=== PATIENT | female | born 1995 | race Caucasian/White ===

== ENCOUNTER 2020-05-09 07:51 | Outpatient (CLI) | payer SELFPAY ==
--- NOTE | 2020-05-09 07:59 | US_ITS ---
WS: [id number] TRANSABDOMINAL AND TRANSVAGINAL FIRST TRIMESTER ULTRASOUND HISTORY: SUPERVISION OF NORMAL : 1 PARA: 0 COMPARISON: None available. FINDINGS: Cervical length is 2.48 cm and was closed. Single live intrauterine . [place] rump length measuring 0.5 cm. Yolk sac measures 0.4 cm. Gestational sac measures 6w2d cm. cardiac tones 133 BPM. Estimated date of delivery 12/31/2020. No evidence of subchorionic hemorrhage. Uterus measures 5.1 cm x 8.6 cm x 5.4 cm. Right ovary measures 1.7 cm x 2.4 cm x 1.5 cm. Left ovary measures 1.6 cm x 2.7 cm x 1.8 cm. US/US OB <=14 wk fetus w transvag IMPRESSION: [place]-rump length suggests 6 weeks 5 day gestation. Expected date of confinemen t December 31, 2020 The right ovary blood flow was not documented.
== END 2020-05-09 07:52 | disposition home or self-care (01) ==
LOC: RAD 07:51
PROVIDERS: PCP Nurse Practitioner Family; Visit Provider Family Medicine
DX: Z34.80 Encounter for supervision of other normal pregnancy, unspecified trimester (principal); Z3A.01 Less than 8 weeks gestation of pregnancy
CPT/HCPCS: 76801; 76817

== ENCOUNTER 2020-08-12 07:38 | Outpatient (CLI) | payer OTHER, SELFPAY ==
--- NOTE | 2020-08-12 08:09 | US_ITS ---
WS: [id number] ULTRASOUND OB COMPLETE TECHNIQUE: Complete ultrasound. CLINICAL INFORMATION: ANATOMY COMPARISON: May 09, 2020 FINDINGS: Cervix measures 3.5 cm Single interuterine gestation is identified with vertex presentation. Placenta is anterior. Placenta grade 0. Normal amniotic fluid volume. cardiac activity: 147 BPM. AGA: 20w3d FLACO by ultrasound: 12/27/2020 Estimated weight: 346 g BDP: 4.8 cm = 20w4d HC: 17.8 cm = 20w2d AC: 15.3 cm = 20w3d FEMUR LENGTH: 3.3 cm = 20w1d Anatomic survey: Profile not well seen. Nose and lips difficult to visualize. Possible defect in the upper lip. Recommend 2 week follow-up for additional attempt at anatomy and/or level 2 ultrasound for more detailed anatomy. Anatomic survey is otherwise normal. Normal stomach. Kidneys and bladder are normal. Normal 3 vessel cord. Normal 3 vessel cord insertion. Normal 4 chamber heart. Normal spine. Intracranial contents are normal. Normal posterior fossa and cisterna magna. US/US OB >= 14 weeks fetus [id number] IMPRESSION: 1. Single intrauterine with visualized cardiac activity. AGA 20w3d w ith FLACO 12/27/2020. 2. Placenta is anterior. No evidence of abruption or previa. 3. Profile not well seen. Possible defect in the upper lobe although equivocal . Recommend 2 week follow-up for additional anatomy attempt and/or level 2 ultr asound for more detailed anatomy evaluation 4. Normal amniotic fluid volume.
== END 2020-08-12 07:39 | disposition home or self-care (01) ==
LOC: RAD 07:41
PROVIDERS: PCP Nurse Practitioner Family; Visit Provider Family Medicine
DX: Z34.92 Encounter for supervision of normal pregnancy, unspecified, second trimester; Z3A.20 20 weeks gestation of pregnancy
CPT/HCPCS: 76805

== ENCOUNTER 2020-08-27 14:43 | Outpatient (CLI) | payer OTHER, SELFPAY ==
--- NOTE | 2020-08-27 14:51 | US_ITS ---
WS: [id number] [place] [id number] REASON FOR EXAM: US NOSE/LIPS/SUPERVISION OF NORMAL FINDINGS: Limited examination performed in follow-up of previous ultrasound on 08/12/2020. Again at this time the facial structure of the fetus is very difficult to evaluate and the examinatio n is considered 9 diagnostic, no abnormality identified. US/[place] [id number] IMPRESSION: Nondiagnostic examination.
== END 2020-08-27 14:44 | disposition home or self-care (01) ==
LOC: RAD 14:47
PROVIDERS: PCP Nurse Practitioner Family; Visit Provider Nurse Practitioner Family
DX: Z34.80 Encounter for supervision of other normal pregnancy, unspecified trimester (principal)
CPT/HCPCS: 76816

== ENCOUNTER 2020-10-16 07:56 | Outpatient (CLI) | payer OTHER, SELFPAY ==
--- NOTE | 2020-10-16 08:13 | US_ITS ---
WS: [id number] [place] [id number] REASON FOR EXAM: OLIGOHYDRAMNIOS,3RD TRIMESTER-JAIME EFW. This was a limited follow-up examination. FINDINGS: The amnionic fluid index on this examination was 11.47 cm with 5 cm or less representing oligohydramn ios. Anterior placenta with no low-lying segments. Normal umbilical cord and placental and insertion . Biparietal diameter 7.34 cm EGA 29 weeks 3 days Head circumference 26.95 cm EGA 29 weeks 3 days Abdominal circumference 25.02 cm EGA 29 weeks 2 days Femur length 5.64 cm EGA 29 weeks 4 days Estimated weight 1386 g. heart rate 150. Normal motion. Normal urinary bladder. On the previous examination the kidneys were normal. / [place] [id number] IMPRESSION: On today's examination there was a normal amniotic fluid index. EGA 29 weeks 4 days Estimated weight 1306 g. The fetus appeared to be without distress.
--- NOTE | 2020-11-28 13:25 | ANES.PREANE2 ---
Pre-Anesthetic Assessment Pre-Anesthetic Assessment: Preop Diagnosis: IUp Proposed Procedure: epidural Familial anesthetic complications: none Social: Social History: No alcohol and No tobacco Exam: Pre-Anes Outpt Exam: alert, oriented x 3, clear to auscultation bilaterally and regular rate & rhythm Airway: Cervical ROM: WNL MP: 2 Dentition: Full Metabolic: Metabolic: Morbid obesity Anesthetic Plan: ASA status: 2 Anesthesia: Regional (specify below) Risk of > 500 ml blood loss (7ml/kg in children): No Other Pertinent Information: Prefers to go natural Data Anesthesia Cardiac Studies: No Data to Display
== END 2020-10-16 07:57 | disposition home or self-care (01) ==
PROVIDERS: PCP Nurse Practitioner Family; Visit Provider Family Medicine
DX: O41.03X0 Oligohydramnios, third trimester, not applicable or unspecified (principal)
CPT/HCPCS: 76816

== ENCOUNTER 2020-12-22 17:50 | Inpatient (IN) | payer OTHER, SELFPAY ==
[2020-12-22 17:54] VITALS: BMI 39.4
[2020-12-22 18:35] VITALS: TEMP 36.4
[2020-12-22 18:35] LABS: Basophils % 0.3 %; Eosinophils % 0.6 %; Hematocrit 36.9 % (37.0-47.0); Lymphocytes % 27.6 %; Mean Corpuscular HGB Conc 32.5 g/dL (30.0-36.0); Mean Corpuscular Hemoglobin 25.9 pg (28.0-34.0); Mean Corpuscular Volume 79.7 fL (81-99); Mean Platelet Volume 11.7 fL (7.4-10.4); Monocytes # 0.4 10^3/uL (0.2-0.9); Monocytes % 4.9 %; Neutrophils # 4.75 10^3/uL (1.8-7.7); Neutrophils % 66.3 %; Nucleated Red Blood Cells % 0 %; Platelet Count 149 10^3/cmm (130-400); Red Blood Count 4.63 10^6/uL (4.1-5.3); Red Cell Distribution Width 13.8 % (12.1-15.1); White Blood Count 7.2 10^3/uL (4.0-10.0)
[2020-12-22] MEDS: miSOPROStol 100 mcg tablet 25 MCG VAGINAL (19:00)
--- NOTE | 2020-12-22 19:33 | P.HP_ITS ---
Providers/Chief Complaint Admitting Physician: Eric Olson MD Primary Care Provider: FIDE Castañeda History of Present Illness Rand Lopez is a 25 year old at 39.0 weeks gestation by 6-week ultras ound. is complicated by THC use in early , vape user quit in first trimester, maternal cousin with cystic fibrosis, anxiety on sertraline, rubella nonimmune, early gestational hypertension without severe features. The patient presents to labor and delivery secondary to induction of labor for gestational hypertension without severe features. The patient's blood pressures have been running in the low to mid 140s over 90s. She is not having any headache, flashes of light or nausea associated with this. She had a 24-hour urine protein done on 12/20/2020 that was 270. Because of her increasing risk for developing preeclampsia, it was felt best to proceed with induction of labor at 39 weeks gestation. Currently the patient denies any headaches, shortness of breath, flashes of light, chest pains, nausea, fever, cough, leakage of fluid. She had some mild spotting after cervical exam was done in the office on . She has no other concerns this time. Her Covid test was negative on 12/19/2020. The patient is GBS negative. Her blood type is B+. Medications/Allergies Home Medications Medication Instructions Recorded Confirmed Last Taken Type 1 tab PO DAILY 12/22/20 12/22/20 12/22/20 11:30 History Allergies Allergy/AdvReac Type Severity Reaction Status Date / Time No Known Allergies Allergy Verified 12/22/20 17:57 PFSH Acute PFSH: Surgical History (Updated 12/22/20 @ 19:37 by Eric Olson MD) H/O eye surgery Female Reproductive History: : 1 Vitals/I&O/Wt Last Vital Signs Temp 97.6 F 12/22/20 18:35 Weight last 48 hrs Weight 230 lb Physical Exam Narrative: EXAM NARRATIVE: General: Alert and oriented x3 Eyes: Pupils equal round and reactive to light and accommodation Mouth: Mucous membranes moist, pharynx non-erythematous Cardiac: Regular rate and rhythm without murmurs Lungs: Clear to auscultation bilaterally without wheezes, crackles or rhonchi Abdomen: Soft, non-tender, fundus consistent with gestational age Extremities: Trace edema in the bilateral lower extremities Data : 12/22/20 18:15 A&P Additional A&P Information The patient is currently doing well. heart tones are in the mid 130s with moderate variability and good accelerations. She has a category 1 tracing. Her cervical exam done by nursing was 2/60/-3/soft/vertex/posterior. The patient will be given Cytotec for starting the induction process. I discussed the possible risks and benefits of using Cytotec as well as Pitocin. The patient is in agreement with the current plan of care. Proceed with induction of labor and watch blood pressures closely. We will start the antihypertensive protocol if needed. All questions were answered. Attestations Medical Necessity Statement*: The patient will be here for greater than 2 midnights due to routine intrapartum and management of labor and delivery. Coding Level of Care Code Acute Roll Slicing Machine Tender for So [place]
[2020-12-22 19:38] VITALS: BP 154/88; PULSE 82
[2020-12-22 19:58] VITALS: BP 157/101; PULSE 82
[2020-12-22 20:17] VITALS: BP 125/87; PULSE 73
[2020-12-23] VITALS (62 sets, daily range): BP systolic 116–161; BP diastolic 59–106; PULSE 68–181; RESP 16–18; TEMP 36.3–36.6
[2020-12-23] MEDS: lactated ringers 1,000 ML 999 ML IV (00:02)
[2020-12-23] MEDS: butorphanol 2 mg/mL SDV 1 mL 1 MG IVP (00:05)
--- NOTE | 2020-12-23 01:24 | P.ANESUD_ITS ---
Pre-Anesthetic Update Pre-Anesthetic Assessment: Date of Surgery/Procedure: 12/23/20 Preop Kinsey gnosis: IUp Proposed Procedure: LENNIE Any changes to Pre-Anesthetic Assessment?: No Last Intake: 1530 Labs Last 48hrs: Laboratory Results - last 48 hr 12/22/20 18:15 WBC 7.2 RBC 4.63 Hgb 12.0 Hct 36.9 L MCV 79.7 L MCH 25.9 L MCHC 32.5 RDW 13.8 Plt Count 149 MPV 11.7 H Neut % (Auto) 66.3 Lymph % (Auto) 27.6 [place] % (Auto) 4.9 Eos % (Auto) 0.6 Baso % (Auto) 0.3 Neut # (Auto) 4.75 Lymph # (Auto) 2.0 [place] # (Auto) 0.4 Eos # (Auto) 0.0 Baso # (Auto) 0.0 Nucleated RBC % (a uto) 0 Nucleated RBCs # 0.0 Vitals: Temperature 97.6 F 12/22/20 18:35 Temperature Source Skin 12/22/20 18:35 Pulse Rate 93 12/23/20 01:22 Respiratory Effort Non-Labored 12/22/20 17:53 Respiratory Depth Normal 12/22/20 17:53 Respiratory Patter n 12/22/20 20:00 Blood Pressure 148/72 12/23/20 01:22 Oxygen Delivery Me thod 12/22/20 17:53 Exam: Pre-Anes Outpt Exam: alert, oriented x 3, clear to auscultation bilaterally and regular rate & rhythm Cardiac Studies: No Data to Display
--- NOTE | 2020-12-23 01:25 | P.ANES_ITS ---
Anesthesia Procedures Procedure/Date: 12/23/20 Epidural: Time Out Performed: Yes Consents Signed: Procedure Consent Consent: requested by attending/covering physician and from patient Lumbar Level: L2-L3 Epidural position: sitting Epidural procedure: sterile prep of area, 1% lidocaine to numb the area, 18 g needle, neg for paresthesia, test d ose given, 1.5% xylocaine 1:200k epi, 0.2% Ropivacaine bolus ml, placed PCEA, no systemic response, sterile dressing applied, L.U.D. no apparent complications and 0.2% Ropiavacaine @ mls/hr Additional Comments: PILAR at 7cm. Cath placed 2 cm into space. Neg blood or CSF. Test dose neg. Ropiv 0.2% 5cc and Fentanyl 100 mcg bolus. Ropiv gtt started at 13 cc/hour
--- NOTE | 2020-12-23 04:17 | PM.DELIVERY ---
Delivery Note: Date of delivery: December 23, 2020 Pre-delivery diagnoses: 1. Intrauterine at 39.1 weeks gestation 2. THC and nicotine use in early first trimester 3. Anxiety on sertraline 4. Rubella nonimmune 5. Gestational hypertension without severe features Post-delivery diagnoses: 1. Intrauterine status post spontaneous vaginal delivery at 39.1 weeks gestation 2. THC and nicotine use in early first trimester 3. Anxiety on sertraline 4. Rubella nonimmune 5. Gestational hypertension without severe features Procedure: Spontaneous vaginal delivery Op report anesthesia: Epidural Delivering Physician: Eric Olson MD Estimated blood loss (mL): 100 Findings: 1. Delivery of healthy infant female weighing 6 pounds 13 ounces with Apgars of 8 and 9 2. Varus deformity of the bilateral feet. Pre-Delivery Course: The patient was brought in for induction of labor secondary to early gestational hypertension at 39.0 weeks gestation. The patient was 2 cm dilated and was given Cytotec x1 at approximately 7 PM on the evening of 12/22/2020. The patient responded well and had progressed rapidly. SROM took place at 11:56 PM on 12/22/2020. The patient was complete by 2:50 AM on 12/23/2020. Delivery: The patient began pushing at 3:43 AM on 12/23/2020. The patient pushed well and the infant delivered in the OA position at 3:49 AM on 12/23/2020. The left shoulder was anterior shoulder and it delivered with ease. Rest the infant delivered without complication. The infant's mouth and nose were bulb suctioned by myself. The was crying immediately after delivery. The infant was placed on mother's chest where the nurses were waiting to care for her. Cord was clamped by myself after approximately 1 minute and cut by the 's father. Cord blood was obtained. The cord was then drained of blood. Traction was placed on the umbilical cord and uterine massage was done. The placenta delivered without complication at 3:56 AM on 12/23/2020. The placenta was noted to be intact with a central umbilical cord insertion site. The uterus was massaged and found to be firm and midline. The cervix was inspected and no lacerations were noted. Vaginal wall was inspected and a few abrasions were noted, however no significant lacerations. No suturing was needed. Currently both the mother and are doing well. A&P Assessment and plan (1) Intrauterine : Status: Acute (2) Spontaneous vaginal delivery: Status: Acute Coding Level of Care Code Acute Umbrella Repairer for Chg Fwd Diagnoses Intrauterine Z34.90 Spontaneous vaginal delivery O80
--- NOTE | 2020-12-23 05:15 | PC.NURSE ---
UDS collected at 0500. Patient received 1 mg stadol for labor pains at 0005.
[2020-12-23] MEDS: oxytocin 30 UNIT/500 ML BAG 600 UNIT IV (05:32)
[2020-12-23 05:45] LABS: Amphetamines Screen Urine Negative (Negative); Barbiturates Screen Urine Negative (Negative); Benzodiazepines Screen Urine Negative (Negative); Cocaine Screen Urine Negative (Negative); Opiate Screen Urine Negative (Negative); PCP Screen Urine Negative (Negative); THC Screen Urine Negative (Negative)
[2020-12-23] MEDS: benzocaine-menthol 78 gm Canister 1 SPRAY TOPICAL (09:37)
[2020-12-23] MEDS: prenatal vitamin Capsule 1 CAP PO (09:37)
[2020-12-23] MEDS: ibuprofen 800 mg tablet PO ×3 (09:37→20:21)
[2020-12-23] MEDS: docusate sodium 100 mg Capsule PO ×2 (09:37→18:46)
[2020-12-23] MEDS: lanolin oint 7 gm 1 APPLIC TOPICAL (09:38)
--- NOTE | 2020-12-23 10:42 | ANE.PACU2 ---
Inpatient post-anesthesia follow up: Airway intact: Yes Vital signs: Temperature 97.6 F Pulse Rate 99 Respiratory Rate 18 Blood Pressure 118/78 Pulse Oximetry Oxygen Delivery Me thod Room Air Oxygen Flow Rate Fraction of Inspir ed Oxygen Hydration adequate: Yes Nausea and vomiting: No Pain level: 2 Mental status: Baseline Additional Comments: no headaches, no signs of infection at epidural site, no weakness/numbness of lower extremities
[2020-12-23 15:59] LABS: Hematocrit 32.9 % (37.0-47.0); Hemoglobin 10.6 g/dL (11.5-15.3); Mean Corpuscular HGB Conc 32.2 g/dL (30.0-36.0); Mean Corpuscular Volume 80.6 fL (81-99); Mean Platelet Volume 12.1 fL (7.4-10.4); Platelet Count 151 10^3/cmm (130-400); Red Blood Count 4.08 10^6/uL (4.1-5.3); Red Cell Distribution Width 14.1 % (12.1-15.1); White Blood Count 9.9 10^3/uL (4.0-10.0)
[2020-12-24] VITALS (8 sets, daily range): BP systolic 119–131; BP diastolic 69–91; PULSE 85–113; RESP 16–17; TEMP 36.2–36.6
[2020-12-24] MEDS: HYDROcodone-acetaminophen 5-325 mg Tablet PO (07:13)
[2020-12-24] MEDS: prenatal vitamin Capsule 1 CAP PO (09:05)
[2020-12-24] MEDS: ibuprofen 800 mg tablet PO ×2 (09:05→15:25)
[2020-12-24] MEDS: docusate sodium 100 mg Capsule PO (09:05)
--- NOTE | 2020-12-24 11:59 | PC.NURSE ---
pt encouraged to shower and ambulate around room. shower supplies provided
[2020-12-24] MEDS: measles,mumps,rubella pf Vial (w/diluent) 0.5 ML SUBCUT (16:46)
--- NOTE | 2020-12-25 07:07 | P.DS_ITS ---
Discharge Providers Date of Admission: 12/22/20 17:50 Date of Discharge: December 24, 2020 Attending Provider at Admission: Eric Olson MD Attending Provider at Discharge: Eric Olson MD Primary Care Provider: FIDE Castañeda Diagnoses at Discharge Discharge Diagnosis (1) Intrauterine : Status: Resolved (2) Spontaneous vaginal delivery: Status: Resolved Other Information Additional DC diagnoses/information: 1. Intrauterine status post spontaneous vaginal delivery at 39.1 weeks gestation 2. THC and nicotine use in early first trimester 3. Anxiety on sertraline 4. Rubella nonimmune 5. Gestational hypertension without severe features Hospital Course Hospital Course Pre-Delivery Course: The patient was brought in for induction of labor secondary to early gestational hypertension at 39.0 weeks gestation. The patient was 2 cm dilated and was given Cytotec x1 at approximately 7 PM on the evening of 12/22/2020. The patient responded well and had progressed rapidly. SROM took place at 11:56 PM on 12/22/2020. The patient was complete by 2:50 AM on 12/23/2020. Delivery: The patient began pushing at 3:43 AM on 12/23/2020. The patient pushed well and the infant delivered in the OA position at 3:49 AM on 12/23/2020. The left shoulder was anterior shoulder and it delivered with ease. Rest the delivered without complication. The 's mouth and nose were bulb suctioned by myself. The infant was crying immediately after delivery. The infant was placed on mother's chest where the nurses were waiting to care for her. Cord was clamped by myself after approximately 1 minute and cut by the infant's father. Cord blood was obtained. The cord was then drained of blood. Traction was placed on the umbilical cord and uterine massage was done. The placenta delivered without complication at 3:56 AM on 12/23/2020. The placenta was noted to be intact with a central umbilical cord insertion site. The uterus was massaged and found to be firm and midline. The cervix was inspected and no lacerations were noted. Vaginal wall was inspected and a few abrasions were noted, however no significant lacerations. No suturing was needed. : The patient is doing very well without any complications. Her bleeding is decreasing well. She is ambulating, voiding, tolerating food by mouth. She is passing gas. Her pain is well controlled. Currently the patient is doing well and is ready to be discharged home. All questions were answered. Routine instructions were given. Physical Exam Narrative: EXAM NARRATIVE: General: Alert and oriented x3 Cardiac: Regular rate and rhythm without murmurs Lungs: Clear to auscultation bilaterally without wheezes, crackles or rhonchi Abdomen: Soft, mild tenderness over the uterus. Uterus is firm and 3 cm below umbilicus. Extremities: +1 pitting edema in the bilateral lower extremities Urinary Catheter Management^: Cee: Cath Placed During This Visit: yes, but has since been removed by the nurse Reason for Continuing Indwelling Catheter: Accurate Measurement of Urinary Output in Critically Ill Patients Urinary Catheter Date of Insertion: 12/23/20 Urinary Catheter Time of Insertion: 01:45 Date Urinary Catheter Removed: 12/23/20 Time Urinary Catheter Discontinued: 03:30 Discharge Data Vitals: Last Vital Signs Temp 97.9 F 12/24/20 16:52 Pulse 113 H 12/24/20 16:52 Resp 17 12/24/20 16:52 BP 126/69 12/24/20 16:52 Discharge Plan Discharge Patient Disposition: Home Condition: Good Prescriptions: New ibuprofen 800 mg Tablet 800 mg PO TID Qty: 60 RF: 0 hydrocodone-acetaminophen 5-325 mg Tablet 1 tab PO Q6H PRN (Reason: Moderate To Severe Pain) Qty: 15 RF: 0 ferrous sulfate 325 mg (65 mg iron) tablet,delayed release (DR/EC) 325 mg PO BID Qty: 30 RF: 0 Continued 1 tab PO DAILY RF: 0 Discharge Orders: Discharge Order (Routine); Ordered 12/24/20 Ordered By: Eric Olson Referrals: Eric Olson MD [Physician] - 02/03/21 12:30 pm (Your 6 week appointment has been scheduled for 02/03/2021 at 12:[address] Olson.) Discharge Diet: Regular Discharge Activity: Resume usual activity Patient Instructions: Vaginal Delivery (DC), Pre-eclampsia and Eclampsia (DC), OB Discharge Report, OB Food/Drug Interaction Guide, OB [facility], OB Vaginal Deliveries Activity Restrictions/Additional Instructions: Nothing per vagina for 6 weeks Discharge Attestations Time Spent in Discharge Care*: greater than 30 min Quality Metrics Clinical Quality Measures During this hospital stay, did patient experience: None Coding Level of Care Code Acute Industrial Relations Officer for Chg Fwd Diagnoses Intrauterine Z34.90 Spontaneous vaginal delivery O80
== END 2020-12-24 16:52 | disposition home or self-care (01) | DRG 807 ==
PROVIDERS: Admitting Provider Family Medicine; PCP Nurse Practitioner Family; Visit Provider Family Medicine
DX: O13.4 Gestational [pregnancy-induced] hypertension without significant proteinuria, complicating childbirth (principal); Z37.0 Single live birth; Z3A.39 39 weeks gestation of pregnancy; O99.344 Other mental disorders complicating childbirth; F41.9 Anxiety disorder, unspecified
CPT/HCPCS: 12345; 36415; 51702; 59025; 59409; 80306; 85025; 85027; 90707; 96372; 96374; 98960; 99211; J0595; J2795; J3010

== ENCOUNTER → 2021-07-21 10:06 | Outpatient (BNVA) | payer OTHER, SELFPAY | PROVIDERS: PCP Nurse Practitioner Family; Visit Provider Specialist | DX: R20.2 Paresthesia of skin (principal); R20.0 Anesthesia of skin | CPT/HCPCS: 95910 ==

== ENCOUNTER → 2021-08-01 16:12 | Outpatient (BNVA) | payer OTHER, SELFPAY | PROVIDERS: Visit Provider Nurse Practitioner Women's Health | DX: N91.2 Amenorrhea, unspecified (principal) | CPT/HCPCS: 82670; 84702 ==

== ENCOUNTER → 2021-08-15 09:40 | Outpatient (BNVA) | payer OTHER, SELFPAY | PROVIDERS: Visit Provider Nurse Practitioner Women's Health | DX: N91.2 Amenorrhea, unspecified (principal) | CPT/HCPCS: 76830 ==

== ENCOUNTER 2021-12-29 11:27 | Outpatient (CLI) | payer OTHER, SELFPAY ==
--- NOTE | 2021-12-29 11:40 | XR_ITS ---
WS: [id number] RIGHT HAND: 3 VIEW(S) TECHNIQUE: PA, oblique and lateral. HISTORY: Z79.899 - Other longterm (current) drug therapy COMPARISON: None available. No acute fracture or dislocation. No soft tissue or bone abnormality. XR/XR hand RT min 3V* [id number] IMPRESSION: Normal RIGHT hand.
--- NOTE | 2021-12-29 11:40 | XR_ITS ---
WS: [id number] LEFT HAND: 3 VIEW(S) TECHNIQUE: PA, oblique and lateral. HISTORY: Z79.899 - Other penitentiary (current) drug therapy COMPARISON: None available. No acute fracture or dislocation. No soft tissue or bone abnormality. XR/XR hand LT min 3V* [id number] IMPRESSION: Normal LEFT hand.
[2021-12-29 12:23] LABS: Erythrocyte Sedimentation Rate 26 mm/hr (0-15)
[2021-12-29 13:38] LABS: Hepatitis B Core AB, Total Non-Reactive (Nonreactive); Hepatitis B Surface Antigen Non-Reactive (Nonreactive); Hepatitis C Virus Antibody Non-Reactive (Nonreactive)
[2021-12-30 15:02] LABS: Cyclic Citrullinated Peptide <16 UNITS
[2021-12-31 13:57] LABS: Quantiferon Mitogen >10.00 IU/mL; Quantiferon Nil 0.02 IU/mL; Quantiferon TB Gold NEGATIVE (NEGATIVE)
== END 2021-12-29 11:28 | disposition home or self-care (01) ==
PROVIDERS: PCP Nurse Practitioner Family; Visit Provider Internal Medicine Rheumatology
DX: M19.90 Unspecified osteoarthritis, unspecified site (principal); Z79.899 Other long term (current) drug therapy; Z11.59 Encounter for screening for other viral diseases; Z11.1 Encounter for screening for respiratory tuberculosis
CPT/HCPCS: 73130; 85651; 86140; 86200; 86480; 86704; 86803; 87340

== ENCOUNTER 2022-06-30 13:52 | Outpatient (CLI) | payer OTHER, SELFPAY ==
[2022-06-30 14:32] LABS: Basophils % 0.3 %; Eosinophils # 0.1 10^3/uL (0.0-0.8); Eosinophils % 1.2 %; Hematocrit 40.2 % (37.0-47.0); Lymphocytes # 2.2 10^3/uL (0.8-4.8); Lymphocytes % 36.3 %; Mean Corpuscular HGB Conc 32.3 g/dL (30.0-36.0); Mean Corpuscular Hemoglobin 25.2 pg (28.0-34.0); Mean Corpuscular Volume 78.1 fl (81-99); Mean Platelet Volume 10.5 fL (7.4-10.4); Monocytes # 0.3 10^3/uL (0.2-0.9); Monocytes % 5.6 %; Neutrophils # 3.34 10^3/uL (1.8-7.7); Neutrophils % 56.3 %; Nucleated Red Blood Cells % 0 %; Platelet Count 274 10^3/cmm (130-400); Red Blood Count 5.15 10^6/uL (4.1-5.3); Red Cell Distribution Width 14.3 % (12.1-15.1); White Blood Count 5.9 10^3/uL (4.0-10.0)
[2022-06-30 15:00] LABS: Alanine Aminotransferase 11 U/L (0-33); Albumin Level 4.4 g/dL (3.5-5.2); Alkaline Phosphatase 75 IU/L (35-105); Aspartate Amino Transferase 13 U/L (0-32); C Reactive Protein 8.5 mg/L (0.0-4.9); Globulin 3.1 g/dL (1.3-4.6); Glomerular Filtration Rate 119.9 mL/min (90-130); Total Bilirubin 0.2 mg/dL (0.15-1.2); Total Protein 7.5 g/dL (6.6-8.7)
== END 2022-06-30 13:53 | disposition home or self-care (01) ==
LOC: LAB 13:54
PROVIDERS: PCP Nurse Practitioner Family; Visit Provider Internal Medicine Rheumatology
DX: M19.90 Unspecified osteoarthritis, unspecified site (principal); Z79.899 Other long term (current) drug therapy
CPT/HCPCS: 36415; 80076; 82565; 85025; 86140

== ENCOUNTER 2022-10-21 09:42 | Outpatient (CLI) | payer OTHER, SELFPAY ==
--- NOTE | 2022-10-21 | XR_ITS ---
WS: [id number] XR hand RT 2V [id number] REASON FOR EXAM: CHRONIC JOINT PAIN DISIBILITY DETERMINATION FINDINGS: The joint spaces of the right hand are intact and well preserved. There are no erosions or periosteal reaction. No focal bone abnormality is identified. No fracture is seen. XR/XR hand RT 2V [id number] IMPRESSION: Unremarkable right hand. No change compared to 12/29/2021.
--- NOTE | 2022-10-21 | XR_ITS ---
WS: [id number] XR ankle RT 2V [id number] REASON FOR EXAM: JOINT PAIN DISIBILITY DETERMINATION FINDINGS: No fracture or focal bone lesion. Spaces of the right ankle joint are intact and well preserved. No soft tissue abnormality. XR/XR ankle RT 2V [id number] IMPRESSION: Unremarkable right ankle.
== END 2022-10-21 09:43 | disposition home or self-care (01) ==
LOC: RAD 09:46
PROVIDERS: PCP Nurse Practitioner Family; Visit Provider Dermatology
DX: Z02.71 Encounter for disability determination (principal); M25.571 Pain in right ankle and joints of right foot; M79.641 Pain in right hand
CPT/HCPCS: 73120; 73600

== ENCOUNTER → 2023-03-08 10:24 | Outpatient (BNVA) | payer OTHER, SELFPAY | PROVIDERS: PCP Clinical Nurse Specialist Adult Health; Visit Provider Clinical Nurse Specialist Adult Health | DX: F32.9 Major depressive disorder, single episode, unspecified (principal) | CPT/HCPCS: 80048; 84443 ==

== ENCOUNTER 2023-08-27 12:46 | Outpatient (CLI) | payer OTHER, SELFPAY ==
--- NOTE | 2023-08-27 12:52 | XR_ITS ---
WS: [id number] EXAMINATION: XR cervical spine 3V* [id number] Cervical spine 3 views REASON FOR EXAM: neck pain COMPARISON: 08/26/2011 FINDINGS: There is no sign of acute fracture or subluxation. There is reversal of the normal cervical lordosis but vertebral body heights and intervertebral disc spaces are maintained. The cervical bony alignmen t and osseous densities appear normal. There is no prevertebral soft tissue change. IMPRESSION: No acute osseous abnormality.
--- NOTE | 2023-08-27 12:52 | XR_ITS ---
WS: [id number] EXAMINATION: XR thoracic spine 3V* [id number] REASON FOR EXAM: back pain COMPARISON: None available. ORDER DATE: 08/27/2023 12:56 PM FINDINGS: There is normal mineralization and thoracic vertebral alignment. There is no sign of compression defo rmities. The disc spaces are well preserved IMPRESSION: No acute abnormality
== END 2023-08-27 12:47 | disposition home or self-care (01) ==
LOC: RAD 12:47
PROVIDERS: PCP Clinical Nurse Specialist Adult Health; Visit Provider Clinical Nurse Specialist Adult Health
DX: M54.6 Pain in thoracic spine (principal); M54.2 Cervicalgia
CPT/HCPCS: 72040; 72072

== ENCOUNTER 2024-05-30 15:26 | Outpatient (CLI) | payer OTHER, SELFPAY ==
--- NOTE | 2024-05-30 15:55 | XR_ITS ---
WS: [id number] Left hip, AP and frog-leg views, 05/30/2024 Clinical Data: left hip pain Comparison: None. Findings: No fractures or dislocations are seen. The left hip shows no erosion, sclerosis, narrowing or fragmen tation of the left femoral head. The soft tissues are not remarkable. The adjacent pelvis is normal. XR/XR hip LT 2-3V wo/w pel* [id number] Impression: Negative left hip. Tonnis classification: grade 0: normal radiographs
== END 2024-05-30 15:27 | disposition home or self-care (01) ==
PROVIDERS: PCP Clinical Nurse Specialist Adult Health; Visit Provider Clinical Nurse Specialist Adult Health
DX: M25.552 Pain in left hip (principal)
CPT/HCPCS: 73502

== ENCOUNTER 2024-06-12 06:00 | Outpatient (RCR) | payer OTHER, SELFPAY | END 2024-06-21 23:59 | disposition home or self-care (01) | LOC: SPT 06:00 | PROVIDERS: Visit Provider Clinical Nurse Specialist Adult Health | DX: M25.552 Pain in left hip (principal) | CPT/HCPCS: 97110; 97161 ==